=== PATIENT | female | born 1960 | race Caucasian/White ===

== ENCOUNTER 2018-02-06 06:07 | Day surgery (SDC) | payer BC ==
--- NOTE | 2018-01-29 05:44 | HP ---
HISTORY AND PHYSICAL: DATE OF SURGERY: 02/06/18 DATE OF HISTORY AND PHYSICAL: 01/24/18 SURGEON: Dr. Dulce Roche.* (DICTATED BY LIYA BOSCH) PROCEDURE: Left knee arthroscopy, partial meniscectomy, possible removal of loose body, chondroplasty, synovectomy. CHIEF COMPLAINT: Left knee pain. HISTORY OF PRESENT ILLNESS: Ms. Thomas is a 57-year-old female who is scheduled for a left knee arthroplasty with possible medial meniscectomy. Today, she is here for her preoperative H and P. She denies any history of problems with anesthesia or DVT or PE for herself or her family. She is planning to see her PCP later this week and will have a urine dip and culture at that time. PAST MEDICAL HISTORY: Significant for hypertension, asthma, GERD, diverticulitis, hypertension, back pain, and heart disease. PAST SURGICAL HISTORY: Cholecystectomy, bladder sling ablation x2, and breast biopsy. MEDICATIONS: 1. Diltiazem 360 mg daily. 2. Hydrochlorothiazide 2 mg daily. 3. Klor-Con 10 mEq daily. 4. Meloxicam. 5. Montelukast sodium 10 mg daily. 6. Nexium 20 mg daily. 7. Symbicort 160/4.5 mg per actuation. 8. Tramadol 50 mg at night. 9. Ventolin p.r.n. 10. Vitamin D 1000 international units 3 times a day. ALLERGIES: PENICILLIN, though she reports that she has not problems in the past with Keflex and clindamycin. FAMILY MEDICAL HISTORY: Father with stroke and mother with Alzheimer's disease. SOCIAL HISTORY: She denies any tobacco use. She drinks about 4 alcoholic beverages per week. She denies any illicit drug use. REVIEW OF SYSTEMS: Positive for a presenting complaint as outlined in the HPI as well as inability to walk a flight of stairs or 3 blocks and back pain. Otherwise a 12 point system review was negative. PHYSICAL EXAMINATION GENERAL: Well nourished, well developed, in no acute distress. Alert and oriented x3. No gross neurological deficiencies, ambulating with an antalgic gait favoring her left knee. She also has shortened steps and is dragging her left leg with her knee extended. HEENT: Normocephalic, atraumatic. Pupils equally round and reactive to light. Extraocular movements intact. NECK: Supple. No palpable cervical lymph nodes. Thyroid is smooth and nontender. PULMONARY: Lungs clear to auscultation bilaterally with no wheezes, rales, or rhonchi. CARDIAC: Regular rate and rhythm with no murmurs, rubs, or gallops. No pedal edema. She has 2+ DP pulses bilaterally. MUSCULOSKELETAL: Left lower extremity, patient's skin is intact. She has a moderate effusion at the knee joint with significant tenderness to palpation at the medial and lateral joint line. Valgus deformity at the knee. Her range of motion is 5 to 110 degrees of flexion with pain. She has patellofemoral pain and crepitus with range of motion. No varus or valgus instability. Positive Apley's and Nirmala's. Negative Lori's. Distally, she has some varicosities. No edema. 5/5 ankle dorsiflexion and plantar flexion strength. Full sensation to light touch in all nerve distributions and 2+ palpable DP pulse. DIAGNOSTIC STUDIES: She had multiple views of her left knee from 11/14/17 that showed severe patellofemoral degeneration as well as moderate medial and lateral compartment arthritis. There is a large osteophyte in the patellofemoral compartment. An MRI from 11/20/17 shows a large meniscal tear with a suprapatellar loose body. IMPRESSION: Ms. Thomas is a 57-year-old female with a left knee pain that has become severe over the last 3 months. She has a left knee meniscal tear, loose body and osteoarthritis of the left knee joint. PLAN: Ms. Thomas is scheduled to undergo left knee arthroscopy, partial meniscectomy, possible removal of loose bodies, chondroplasty and synovectomy with Dr. Dulce Roche on 02/06/18. She will return to the clinic in 10 to 14 days postop for suture removal and followup. Prescription for pain medication will be prescribed on the day of surgery and I-STOP will be checked prior to sending the prescription. All questions were answered today. LIYA BOSCH [id number]/[facility] [place] #: [id number] DIANA
[~2018-02-06 06:07] MED LIST: Buffered Lidocaine 0.9% SYRIN* 5 ML/SYR SYRINGE INTRADERM ONE; Dexamethasone TAB* 4 MG PO ONE; DiMENhydriNATE IV* 50 MG/ML VIAL IV PUSH PRN; Famotidine TAB* 20 MG PO ONE; Morphine INJ* 2 MG/ML 1 ML CARPUJECT IV PRN; Naloxone* 0.4 MG/ML 1 ML VIAL IV PRN; Ondansetron INJ* 2 MG/ML VIAL ONE; PROCHLORPERAZINE INJ 5 MG/ML 2 ML VIAL IV PRN; Scopolamine 1.5 mg* PATCH TRANSDERM PRN
[2018-02-06] MEDS ORDERED: Ondansetron ODT TAB* 4 MG ONE (06:20)
[2018-02-06] MEDS ORDERED: Famotidine TAB* 20 MG ONE (06:21)
[2018-02-06] MEDS ORDERED: Buffered Lidocaine 0.9% SYRIN* 5 ML/SYR SYRINGE ONE (06:21)
[2018-02-06] MEDS ORDERED: Dexamethasone TAB* 4 MG ONE (06:21)
[2018-02-06] MEDS ORDERED: methylPREDNISolone ACETATE 80* 80 MG/ML 1 ML VIAL ONE (06:53)
[2018-02-06] MEDS ORDERED: Bupivacaine 0.5% PF 10 ML VIAL INJ ONE (06:54)
[2018-02-06] MEDS ORDERED: EPINEPHRINE 1 MG/ML 1 ML VIAL ONE (06:54)
[2018-02-06] MEDS ORDERED: fentaNYL* 50 MCG/ML 2 ML VIAL (100 MCG VIAL) ONE ×3 (07:09→08:37)
[2018-02-06] MEDS ORDERED: Midazolam* 1 MG/ML 5 ML VIAL (5 MG) ONE (07:09)
[2018-02-06] MEDS ORDERED: Lidocaine 2% PF * 5 ML VIAL ONE (07:41)
[2018-02-06] MEDS ORDERED: Propofol* 10 MG/ML 20 ML BTL IV PUSH ONE (07:42)
[2018-02-06] MEDS ORDERED: Ketorolac INJ* 30 MG/ML 1 ML VIAL ONE (07:42)
[2018-02-06] MEDS ORDERED: PROCHLORPERAZINE INJ 5 MG/ML 2 ML VIAL ONE (07:42)
[2018-02-06] MEDS ORDERED: Vancomycin(*) 1,500 MG in NS 0.9% 250 ML* 250 ML IVPB ONE (08:00)
[2018-02-06] MEDS ORDERED: hydrALAZINE IV* 20 MG/ML VIAL ONE (08:17)
[2018-02-06] MEDS ORDERED: oxyCODONE/Acetamin 5/325 MG* TAB ONE ×2 (08:38→09:27)
[2018-02-06] MEDS: oxyCODONE/Acetamin 5/325 MG* TAB PO PRN ×2 (08:40→09:28)
[2018-02-06] MEDS: fentaNYL* 50 MCG/ML 2 ML VIAL (100 MCG VIAL) IV PRN ×2 (08:41→08:57)
[2018-02-06 09:55] VITALS: BP 112/51
--- NOTE | 2018-02-07 13:33 | OP ---
CONTINUATION ADDENDUM NOW INCLUDED ON THIS REPORT DATE OF OPERATION: 02/06/18 DATE OF : 62 SURGEON: Dulce Roche MD. SURVEILLANCE SYSTEMS ENGINEER: LIYA Lewis. Ms. Elena did help throughout the procedure with preparation of the leg, wound retraction, manipulation of the knee, and wound closure. ANESTHESIOLOGIST: Dr. Castellon. ANESTHESIA: General. PRE-OP DIAGNOSIS: Moderate osteoarthritis, medial meniscal tear of the left knee. POST-OP DIAGNOSIS: Left knee severe degenerative osteoarthritis, posterior medial meniscal tear radial type, posterolateral meniscal tear radial type. CONTINUATION ADDENDUM: OPERATIVE PROCEDURE: Left knee arthroscopy with partial medial meniscectomy, partial lateral meniscectomy, medial compartment chondroplasty. ESTIMATED BLOOD LOSS: Less than 25 cc. COMPLICATIONS: None. SPECIMEN: None. BRIEF HISTORY/INDICATION: Ms. Thomas is a 57-year-old female with acute on chronic left knee pain. She has known arthritis and does have some chronic knee pain. She recently began experiencing mechanical symptoms and MRI confirmed a meniscal tear. The patient and I discussed her options. She did not feel ready for total knee arthroplasty and elected to undergo left knee arthroscopy with partial meniscectomy, possible chondroplasty, possible synovectomy. The patient understood that she would likely only have partial pain relief, but was willing to accept this because her quality of life was poor. Informed consent was obtained from the patient. She understood the risk of the surgery included but were not limited to bleeding, infection, damage to nearby structures, continued pain, need for further surgery, retear of the meniscus, stroke, heart attack, blood clot and . She wished to proceed. INTRAOPERATIVE FINDINGS: Intraoperatively, the patient was noted to have grade 3 and 4 Outerbridge cartilage changes in all three compartments. Medial compartment had a large cartilage flap involving a significant portion of the weightbearing surface of the medial femoral condyle. She had radial tear in the posterior third of both the medial and the lateral meniscus. Lateral meniscal fragment was displaced into the capsular recess. DESCRIPTION OF PROCEDURE: Ms. Thomas was identified in the preanesthesia unit. Her left lower extremity was marked as the correct operative side. Informed consent was signed and placed in the chart. The patient was taken to the operating room and placed under general anesthesia. Her left lower extremity was prepped and draped in the usual sterile fashion. Preop timeout was made to correctly identify the patient's side and site. Appropriate perioperative antibiotics were given within 1 hour of incision. A standard anterolateral portal incision was made with a #10 blade and carried down through the capsule. Trocar was introduced. As soon as the light and water sources were turned on, there was immediate visualization of suprapatellar pouch. A tour was performed. Suprapatellar pouch had no obvious abnormalities. Patellofemoral compartment showed grade 3 and 4 Outerbridge cartilage changes with exposed subchondral bone along the medial and lateral patellar facet as well as the trochlear groove above the femur. The medial gutter showed no loose body, no plica. The medial compartment showed a large cartilage flap involving the majority of the weightbearing surface of the medial femoral condyle. There were grade 3 and 4 Outerbridge cartilage changes. A posteromedial radial tear was noted. ACL and PCL appeared to be intact. The knee was placed in a [id number] position. Lateral compartment also had grade 3 and 4 Outerbridge cartilage changes with exposed subchondral bone along the tibial plateau and lateral femoral condyle. There was a visible radial type tear in the posterolateral meniscus. Lateral gutters showed no obvious loose body or plica. Under direct visualization, a medial incision was made. The probe was introduced. No further findings were noted. Shaver and radiofrequency ablation wand were used to perform chondroplasty along the medial femoral condyle. The cartilage flap was sewn over in a conservative manner. Next, the straight biter and shaver were used to perform partial medial meniscectomy. A smooth border in the posterior third of the medial meniscus was obtained in the white red zone. Further probing of the medial meniscus showed no additional tears. The knee was placed in a figure of four position. Probing of the posterolateral meniscus showed a displaced fragment reduced into the joint had been displaced into the capsular recess. Shaver and straight biter were used to perform partial lateral meniscectomy along the posterior third of the lateral meniscus until a smooth border was obtained in the white-red zone. Further probing showed no additional tearing. The knee was copiously irrigated with sterile saline. All instruments were removed. The incisions were closed using interrupted nylon suture. Intraarticular injection of 80 mg Depo-Medrol and 6 cc of 0.25% Marcaine was placed in the knee joint. Sterile Xeroform, 4x4's, and Webril were used to cover the incisions. Yonas wrap and cold pack were placed over this. The patient's anesthesia was reversed without difficulty. She was taken to the PACU in stable condition. Intended weightbearing will be weightbearing as tolerated. Intended DVT prophylaxis will be aspirin. [id number]/[facility] #: [id number] A- [id number]/[facility] #: [id number] DIANA
--- NOTE | 2018-02-07 14:47 | OP ---
OPERATIVE REPORT: ADDENDUM: DATE OF OPERATION: 02/06/18 DATE OF : 62 ATTENDING SURGEON: Dulce Roche MD OPERATIVE PROCEDURE: Left knee arthroscopy with partial medial meniscectomy, partial lateral meniscectomy, medial compartment chondroplasty. ESTIMATED BLOOD LOSS: Less than 25 cc. COMPLICATIONS: None. SPECIMEN: None. BRIEF HISTORY/INDICATION: Ms. Thomas is a 57-year-old female with acute on chronic left knee pain. She has known arthritis and does have some chronic knee pain. She recently began experiencing mechanical symptoms and MRI confirmed a meniscal tear. The patient and I discussed her options. She did not feel ready for total knee arthroplasty and elected to undergo left knee arthroscopy with partial meniscectomy, possible chondroplasty, possible synovectomy. The patient understood that she would likely only have partial pain relief, but was willing to accept this because her quality of life was poor. Informed consent was obtained from the patient. She understood the risk of the surgery included but were not limited to bleeding, infection, damage to nearby structures, continued pain, need for further surgery, retear of the meniscus, stroke, heart attack, blood clot and . She wished to proceed. INTRAOPERATIVE FINDINGS: Intraoperatively, the patient was noted to have grade 3 and 4 Outerbridge cartilage changes in all 3 compartments. Medial compartment had a large cartilage flap involving a significant portion of the weightbearing surface of the medial femoral condyle. She had radial tear in the posterior third of both the medial and the lateral meniscus. Lateral meniscal fragment was displaced into the capsular recess. DESCRIPTION OF PROCEDURE: Ms. Thomas was identified in the preanesthesia unit. Her left lower extremity was marked as the correct operative side. Informed consent was signed and placed in the chart. The patient was taken to the operating room and placed under general anesthesia. Her left lower extremity was prepped and draped in the usual sterile fashion. Preop timeout was made to correctly identify the patient's side and site. Appropriate perioperative antibiotics were given within 1 hour of incision. A standard anterolateral portal incision was made with a #10 blade and carried down through the capsule. Trocar was introduced. As soon as the light and water sources were turned on, there was immediate visualization of suprapatellar pouch. A tour was performed. Suprapatellar pouch had no obvious abnormalities. Patellofemoral compartment showed grade 3 and 4 Outerbridge cartilage changes with exposed subchondral bone along the medial and lateral patellar facet as well as the trochlear groove above the femur. The medial gutter showed no loose body, no plica. The medial compartment showed a large cartilage flap involving the majority of the weightbearing surface of the medial femoral condyle. There were grade 3 and 4 Outerbridge cartilage changes. A posteromedial radial tear was noted. ACL and PCL appeared to be intact. The knee was placed in a [id number] position. Lateral compartment also had grade 3 and 4 Outerbridge cartilage changes with exposed subchondral bone along the tibial plateau and lateral femoral condyle. There was a visible radial type tear in the posterolateral meniscus. Lateral gutters showed no obvious loose body or plica. Under direct visualization, a medial incision was made. The probe was introduced. No further findings were noted. Shaver and radiofrequency ablation wand were used to perform chondroplasty along the medial femoral condyle. The cartilage flap was sewn over in a conservative manner. Next, the straight biter and shaver were used to perform partial medial meniscectomy. A smooth border in the posterior third of the medial meniscus was obtained in the white red zone. Further probing of the medial meniscus showed no additional tears. The knee was placed in a figure of four position. Probing of the posterolateral meniscus showed a displaced fragment the joint had been displaced into the capsular recess . Shaver and straight biter were used to perform partial lateral meniscectomy along the posterior third of the lateral meniscus until a smooth border was obtained in the white-red zone. Further probing showed no additional tearing. The knee was copiously irrigated with sterile saline. All instruments were removed. The incisions were closed using interrupted nylon suture. Intraarticular injection of 80 mg Depo-Medrol and 6 cc of 0.25% Marcaine was placed in the knee joint. Sterile Xeroform, 4x4's, and Webril were used to cover the incisions. Yonas wrap and cold pack were placed over this. The patient's anesthesia was reversed without difficulty. She was taken to the PACU in stable condition. Intended weightbearing will be weightbearing as tolerated. Intended DVT prophylaxis will be aspirin. [id number]/[facility] #: [id number] [facility]ITALJevon
[2018-02-09] MEDS ORDERED: Scopolamine PATCH Remove* 1 NOTE MISC PATCH OFF ONE (05:42)
== END 2018-02-06 10:11 | disposition home or self-care (01) ==
LOC: OR 06:07
PROVIDERS: ATTEND Orthopaedic Surgery Adult Reconstructive Orthopaedic Surgery
DX: M23.204 Derangement of unspecified medial meniscus due to old tear or injury, left knee (principal); M23.201 Derangement of unspecified lateral meniscus due to old tear or injury, left knee; M17.12 Unilateral primary osteoarthritis, left knee; I11.9 Hypertensive heart disease without heart failure; J45.909 Unspecified asthma, uncomplicated; K21.9 Gastro-esophageal reflux disease without esophagitis; E66.9 Obesity, unspecified; Z68.41 Body mass index [BMI] 40.0-44.9, adult; E78.2 Mixed hyperlipidemia; Z87.440 Personal history of urinary (tract) infections
CPT/HCPCS: A9270-GY; J0360; J0780; J1040; J1885; J2250; J2704; J3010; J3370; J8540

== ENCOUNTER 2020-09-01 15:56 | Inpatient (IN) ==
[2020-09-01 17:15] LABS: ABS Basophils 0.1 10^3/ul (0-0.2); ABS Eosinophils 0.2 10^3/ul (0-0.6); ABS Lymphocytes 2.1 10^3/ul (1.0-4.8); ABS Monocytes 0.8 10^3/ul (0-0.8); ABS Neutrophils 4.3 10^3/ul (1.5-7.7); Eosinophil % 3.1 %; Hematocrit 36 % (35-47); Hemoglobin 12.6 g/dL (12.0-16.0); Lymphocyte % 28.1 %; Mean Corpuscular HGB Conc 35 g/dL (31-36); Mean Corpuscular Hemoglobin 29 pg (27-31); Mean Corpuscular Volume 84 fL (80-97); Nucleated Red Blood Cells % 0.1; Platelet Count 251 10^3/uL (150-450); Red Blood Count 4.36 10^6 /uL (3.70-4.87); Red Cell Distribution Width 13 % (10-15); White Blood Count 7.5 10^3/uL (3.5-10.8)
[2020-09-01 17:35] LABS: ALT 35 U/L (7-52); AST 26 U/L (13-39); Albumin 4.1 g/dL (3.2-5.2); Albumin/Globulin Ratio 1.5 (1-3); Alkaline Phosphatase 52 U/L (34-104); Anion Gap 8 mmol/L (2-11); BUN/Creatinine Ratio 11.3 (8-20); Blood Urea Nitrogen 9 mg/dL (6-24); C Reactive Protein < 1.00 mg/L (<8.01); CO2 Carbon Dioxide 25 mmol/L (22-32); Calcium 9.3 mg/dL (8.6-10.3); Chloride 106 mmol/L (101-111); EGFR African American 89.1 (>60); EGFR Non-African American 73.7 (>60); Globulin 2.7 g/dL (2-4); Glucose 91 mg/dL (70-100); Potassium 3.3 mmol/L (3.5-5.0); Sodium 139 mmol/L (135-145); Total Protein 6.8 g/dL (6.4-8.9)
[2020-09-01 18:00] LABS: Activated Partial Thrombo Time 33.2 seconds (26.0-38.0); INR 1.03 (0.82-1.09); LDH 151 U/L (140-271)
[2020-09-01] MEDS ORDERED: Dexamethasone IV 4 MG/ML VIAL 1 ml VIAL IV SLOW PU ONE (18:11)
[2020-09-01 18:16] LABS: Ferritin 97.2 ng/mL (11-307)
[2020-09-01 19:03] LABS: Influenza A Molecular Negative (Negative); Influenza B Molecular Negative (Negative)
[2020-09-01 19:28] LABS: Troponin I 0.01 ng/mL (<0.03)
[2020-09-01] MEDS ORDERED: oxyCODONE/Acetamin 5/325 mg TAB PO PRN (22:00)
[2020-09-01] MEDS ORDERED: Albuterol HFA INHALER 8 gm MDI INH PRN (23:47)
[2020-09-02] MEDS ORDERED: Enoxaparin 40 MG/0.4 ML SYR SUBCUT SCH (00:30)
[2020-09-02] MEDS ORDERED: Potassium Chlor 10 meq TAB PO ONE (02:04)
[2020-09-02 06:30] LABS: ABS Lymphocytes 0.7 10^3/ul (1.0-4.8); ABS Monocytes 0.2 10^3/ul (0-0.8); ABS Neutrophils 6.3 10^3/ul (1.5-7.7); Eosinophil % 0.1 %; Hematocrit 38 % (35-47); Hemoglobin 13.3 g/dL (12.0-16.0); Lymphocyte % 10.2 %; Mean Corpuscular HGB Conc 35 g/dL (31-36); Mean Corpuscular Hemoglobin 29 pg (27-31); Mean Corpuscular Volume 84 fL (80-97); Mean Platelet Volume 8.6 fL (7.4-10.4); Platelet Count 288 10^3/uL (150-450); Red Blood Count 4.54 10^6 /uL (3.70-4.87); Red Cell Distribution Width 13 % (10-15); White Blood Count 7.3 10^3/uL (3.5-10.8)
[2020-09-02 07:11] LABS: BUN/Creatinine Ratio 10.1 (8-20); Calcium 10.1 mg/dL (8.6-10.3); EGFR African American 90.4 (>60); EGFR Non-African American 74.7 (>60); Potassium 3.7 mmol/L (3.5-5.0)
[2020-09-02] MEDS ORDERED: Aspirin EC 81 mg TAB.EC (enteric coated) PO SCH (09:00)
[2020-09-02] MEDS ORDERED: Potassium Chlor 10 meq TAB PO SCH (09:00)
[2020-09-02 16:06] VITALS: BP 131/61
== END 2020-09-02 16:00 | disposition home or self-care (01) | DRG 137 ==
LOC: ED 15:56 → MED 23:43
PROVIDERS: ADMIT Student in an Organized Health Care Education/Training Program; ATTEND Internal Medicine

== ENCOUNTER 2020-11-03 09:00 | Inpatient (IN) ==
[~2020-11-03 09:00] MED LIST changes: -Buffered Lidocaine 0.9% SYRIN* 5 ML/SYR SYRINGE INTRADERM ONE; +Buffered Lidocaine 1% SYRIN 1 ml INTRADERM ONE; -Dexamethasone TAB* 4 MG PO ONE; -DiMENhydriNATE IV* 50 MG/ML VIAL IV PUSH PRN; -Famotidine TAB* 20 MG PO ONE; +Lactated Ringers 1000 ml BAG 1,000 ML IV SCH; -Morphine INJ* 2 MG/ML 1 ML CARPUJECT IV PRN; -Naloxone* 0.4 MG/ML 1 ML VIAL IV PRN; -Ondansetron INJ* 2 MG/ML VIAL ONE; -PROCHLORPERAZINE INJ 5 MG/ML 2 ML VIAL IV PRN; -Scopolamine 1.5 mg* PATCH TRANSDERM PRN
[2020-11-03] MEDS ORDERED: Ketamine HCL 50 mg/ml 10 ml VIAL (500 MG) ONE (09:49)
[2020-11-03] MEDS ORDERED: Propofol 10 MG/ML 20 ML BTL ONE ×2 (10:19→13:47)
[2020-11-03] MEDS ORDERED: Ondansetron 4 mg VIAL 2 MG/ML 2 ml VIAL ONE (10:19)
[2020-11-03] MEDS ORDERED: Lidocaine 2% PF 5 ML VIAL ONE (10:20)
[2020-11-03] MEDS ORDERED: ceFAZolin 2 GM PREMIX 2 GM/50 ML BAG ONE (11:07)
[2020-11-03] MEDS ORDERED: Midazolam 5 mg/5 ml VIAL 1 mg/ml 5 ml VIAL (5 mg) ONE (12:26)
[2020-11-03] MEDS ORDERED: ROPIVACAINE 5 MG/ML 30 ML BTL (0.5%) ONE ×2 (12:27→12:46)
[2020-11-03] MEDS ORDERED: Lidocaine 1% MPF 5 ML VIAL ONE (12:46)
[2020-11-03] MEDS ORDERED: fentaNYL 100 mcg/2 ml 50 MCG/ML VIAL ONE (13:26)
[2020-11-03] MEDS ORDERED: Glycopyrrolate IV 0.2 MG/ML 1 ML VIAL ONE (13:46)
[2020-11-03] MEDS ORDERED: Lactulose 30 ml UDC PO PRN (14:06)
[2020-11-03] MEDS ORDERED: Morphine 2 MG/ML SYRINGE IV PRN (14:06)
[2020-11-03] MEDS ORDERED: diPHENhydraMINE 25 mg TAB PO PRN (14:06)
[2020-11-03] MEDS ORDERED: Ondansetron 4 mg VIAL 2 MG/ML 2 ml VIAL IV PRN (14:06)
[2020-11-03] MEDS ORDERED: Ondansetron ODT 4 mg TAB 4 MG TAB PO PRN (14:06)
[2020-11-03] MEDS ORDERED: Magnesium Hydroxide LIQ 30 ML UDC PO PRN (14:06)
[2020-11-03] MEDS ORDERED: diPHENhydraMINE IV 50 MG/ML 1 ml VIAL (BENADRYL) IV PRN ×2 (14:06→15:48)
[2020-11-03] MEDS ORDERED: Albuterol 2.5mg/3 ml (0.083%) NEB.SOLN INH PRN (14:12)
[2020-11-03] MEDS ORDERED: Phenylephrine 40 mcg/mL 10mL (400mcg) SYRINGE ONE (14:31)
[2020-11-03] MEDS ORDERED: fentaNYL 100 mcg/2 ml 50 MCG/ML VIAL IV PRN (15:48)
[2020-11-03] MEDS ORDERED: Naloxone 0.4 mg VIAL 0.4 mg/ml 1 ml VIAL IV PRN (15:48)
[2020-11-03] MEDS: Lactated Ringers 1000 ml BAG 1,000 ML IV SCH (16:34)
[2020-11-03] MEDS: ceFAZolin 1 GM ADVAN 1 GM in NS 0.9% 50 ML 50 ML IVPB SCH (21:16)
[2020-11-03] MEDS: Magnesium Hydroxide LIQ 30 ML UDC PO SCH (21:19)
[2020-11-04] MEDS: Lactated Ringers 1000 ml BAG 1,000 ML IV SCH (02:44)
[2020-11-04] MEDS: ceFAZolin 1 GM ADVAN 1 GM in NS 0.9% 50 ML 50 ML IVPB SCH ×2 (04:04→13:08)
[2020-11-04 05:11] LABS: Hematocrit 36 % (35-47); Hemoglobin 11.6 g/dL (12.0-16.0); Mean Platelet Volume 9.2 fL (7.4-10.4); Platelet Count 47 10^3/uL (150-450)
[2020-11-04 05:45] LABS: CO2 Carbon Dioxide 21 mmol/L (22-32); Calcium 9.2 mg/dL (8.6-10.3); Chloride 104 mmol/L (101-111); Sodium 135 mmol/L (135-145)
[2020-11-04 05:46] LABS: Anion Gap 10 mmol/L (2-11)
[2020-11-04 05:51] LABS: BUN/Creatinine Ratio 22.3 (8-20); Blood Urea Nitrogen 21 mg/dL (6-24); EGFR Non-African American 61.2 (>60); Glucose 142 mg/dL (70-100)
[2020-11-04 07:26] LABS: Mean Platelet Volume 7.9 fL (7.4-10.4); Platelet Count 241 10^3/uL (150-450)
[2020-11-04] MEDS ORDERED: Mometasone/Formoter 100/5 MDI INH SCH (09:00)
[2020-11-04] MEDS ORDERED: Potassium Chlor 10 meq TAB PO SCH (09:00)
[2020-11-04] MEDS ORDERED: Vitamin THERAPEUTIC TAB PO SCH (09:00)
[2020-11-04] MEDS ORDERED: Fluticasone NASAL SPRAY 50MCG 16 gm SPRAY BTL INTRANASAL SCH (09:00)
[2020-11-04] MEDS: Magnesium Hydroxide LIQ 30 ML UDC PO SCH (09:58)
[2020-11-04 10:53] VITALS: BP 112/55
== END 2020-11-04 13:48 | disposition home health service (06) | DRG 302 ==
LOC: AA 10:52 → SSU 14:06
PROVIDERS: ADMIT Orthopaedic Surgery Adult Reconstructive Orthopaedic Surgery; ATTEND Orthopaedic Surgery Adult Reconstructive Orthopaedic Surgery

== ENCOUNTER 2021-07-04 12:45 | Inpatient (IN) ==
[2021-07-12] MEDS ORDERED: Metoclopramide 5 MG/ML VIAL (10 mg) IV PRN (10:56)
[2021-07-12] MEDS ORDERED: HYDROcodone/ACETAMIN 5/325 mg TAB PO PRN (10:56)
[2021-07-12] MEDS ORDERED: Naloxone 0.4 mg VIAL 0.4 mg/ml 1 ml VIAL IV PRN (10:56)
[2021-07-12] MEDS ORDERED: DiMENhydriNATE IV 50 mg/ml 1 ml VIAL IV PUSH ONE (10:56)
[2021-07-12] MEDS ORDERED: Ondansetron 4 mg VIAL 2 MG/ML 2 ml VIAL IV PRN (10:56)
[2021-07-12] MEDS ORDERED: Buffered Lidocaine 1% SYRIN 1 ml INTRADERM ONE (10:56)
[2021-07-12] MEDS ORDERED: Lactated Ringers 1000 ml BAG 1,000 ML IV SCH (11:00)
[2021-07-13] MEDS ORDERED: Lidocaine 2% PF 5 ML VIAL ONE (07:07)
[2021-07-13] MEDS ORDERED: Propofol 0 MG/0 ML BTL ONE (07:07)
[2021-07-13] MEDS ORDERED: Vancomycin 2,000 MG in NS 0.9% 500 ml BAG 500 ML IVPB ONE (08:00)
[2021-07-13] MEDS ORDERED: DiMENhydriNATE IV 50 mg/ml 1 ml VIAL ONE (08:05)
[2021-07-13] MEDS ORDERED: Dexamethasone IV 4 MG/ML VIAL 1 ml VIAL ONE (08:10)
[2021-07-13] MEDS ORDERED: Bupivacaine 0.5% W/EPI SDV 10 ML VIAL INJ ONE (08:11)
[2021-07-13] MEDS ORDERED: Bupivacaine 0.5% SDV PF 30ML VIAL ONE (08:11)
[2021-07-13] MEDS ORDERED: Midazolam 2 mg/2 ml VIAL 1 mg/ml 2 ml VIAL (2 mg) ONE (08:12)
[2021-07-13] MEDS ORDERED: fentaNYL 100 mcg/2 ml 50 MCG/ML VIAL ONE ×2 (08:12→11:33)
[2021-07-13] MEDS ORDERED: ROPIVACAINE 5 MG/ML 30 ML BTL (0.5%) ONE (08:20)
[2021-07-13] MEDS ORDERED: Phenylephrine 40 mcg/mL 10mL (400mcg) SYRINGE ONE (09:31)
[2021-07-13] MEDS ORDERED: Phenylephrine IV 10 MG/ML 1 ml VIAL ONE (09:42)
[2021-07-13] MEDS ORDERED: Magnesium Hydroxide LIQ 30 ML UDC PO PRN (10:05)
[2021-07-13] MEDS ORDERED: Lactulose 30 ml UDC PO PRN (10:05)
[2021-07-13] MEDS ORDERED: Ondansetron ODT 4 mg TAB 4 MG TAB PO PRN (10:05)
[2021-07-13] MEDS ORDERED: Ondansetron 4 mg VIAL 2 MG/ML 2 ml VIAL IV PRN (10:05)
[2021-07-13] MEDS ORDERED: Morphine 2 MG/ML SYRINGE IV PRN (10:05)
[2021-07-13] MEDS ORDERED: Prochlorperazine 5 mg/ml 2 ml VIAL (10 mg) IV PRN (10:16)
[2021-07-13] MEDS ORDERED: Propofol 10 MG/ML 20 ML BTL ONE (10:43)
[2021-07-13] MEDS ORDERED: Vancomycin per Pharmacy 1 EA NOTE FOLLOW UP SCH (11:00)
[2021-07-13] MEDS: fentaNYL 100 mcg/2 ml 50 MCG/ML VIAL IV PRN ×4 (11:34→11:48)
[2021-07-13] MEDS ORDERED: HYDROcodone/ACETAMIN 5/325 mg TAB ONE (11:47)
[2021-07-13] MEDS: Lactated Ringers 1000 ml BAG 1,000 ML IV SCH (13:02)
[2021-07-13] MEDS: Vancomycin 1,250 MG in NS 0.9% 250 ml 250 ML IVPB SCH (19:34)
[2021-07-13] MEDS: Magnesium Hydroxide LIQ 30 ML UDC PO SCH (22:13)
[2021-07-14] MEDS: Lactated Ringers 1000 ml BAG 1,000 ML IV SCH (01:09)
[2021-07-14 06:17] LABS: Hematocrit 33 % (35-47); Hemoglobin 11.4 g/dL (12.0-16.0); Mean Platelet Volume 8.3 fL (7.4-10.4); Platelet Count 353 10^3/uL (150-450)
[2021-07-14 06:37] LABS: Calcium 9.1 mg/dL (8.6-10.3); Potassium 3.4 mmol/L (3.5-5.0)
[2021-07-14] MEDS ORDERED: Potassium Chlor 10 meq TAB PO SCH (09:00)
[2021-07-14] MEDS ORDERED: Mometasone/Formoter 100/5 MDI INH SCH (09:00)
[2021-07-14] MEDS ORDERED: Fluticasone NASAL SPRAY 50MCG 16 gm SPRAY BTL INTRANASAL SCH (09:00)
[2021-07-14] MEDS ORDERED: Vitamin THERAPEUTIC TAB PO SCH (09:00)
[2021-07-14] MEDS: Vancomycin 1,250 MG in NS 0.9% 250 ml 250 ML IVPB SCH (09:01)
[2021-07-14] MEDS: Magnesium Hydroxide LIQ 30 ML UDC PO SCH (09:03)
[2021-07-14 11:42] VITALS: BP 134/70
== END 2021-07-14 14:20 | disposition home or self-care (01) | DRG 302 ==
LOC: AA 07-13 07:39 → SSU 07-13 10:05
PROVIDERS: ADMIT Orthopaedic Surgery Adult Reconstructive Orthopaedic Surgery; ATTEND Orthopaedic Surgery Adult Reconstructive Orthopaedic Surgery